=== PATIENT | female | born 1990 | race Caucasian/White ===

== ENCOUNTER 2018-11-25 05:49 | Inpatient (IN) | payer OTHER ==
[~2018-11-25] VITALS: Ht 160 cm; Wt 51.6 kg
--- NOTE | 2018-11-25 06:00 | NUR ---
PT ADMITTED TO FLOOR. HAS C/O RT SHOULDER PAIN, AND OTHER GENERALIZED PAIN. STATED SHE HAS RECENTLY HAD N/V/D AND SOME ABD PAIN, ALTHOUGH NONE CURRENTLY, AND USUALLY TAKES ZOFRAN FOR IT. LIGHT COLORED RASH NOTED TO BODY, PT STATED THAT THE MEDICATION SHE WAS GIVEN AT [facility] HAD HELPED RASH ALOT.
[2018-11-25 06:07] VITALS: BP 95/68; PULSE 82; TEMP 97.5
[2018-11-25] MEDS ORDERED: ZOFRAN8 MG PO (06:32)
[2018-11-25] MEDS ORDERED: APRESOLINE 25MG25 MG PO (06:33)
[2018-11-25] MEDS ORDERED: LEXAPRO 10MG10 MG PO (06:34)
[2018-11-25] MEDS ORDERED: VISTARIL 2525 MG/CAP PO (06:37)
[2018-11-25 07:08] VITALS: BP 110/71; PULSE 80; TEMP 98
[2018-11-25 07:15] LABS: HEMATOCRIT 39.9 % (37.0-47.0); HEMOGLOBIN 12.8 g/dl (12.5-16.0); MEAN CELL VOLUME 88 fl (80.0-100.0); MEAN CORPUSCULAR HEMOGLOBIN 28 pg (27.0-31.0); MEAN CORPUSCULAR HGB CONC 32 g/dl (33.0-37.0); MEAN PLATELET VOLUME 10.5 fl (7.4-10.4); PLATELET COUNT 252 K/mm3 (130-400); RED BLOOD COUNT 4.54 M/mm3 (4.10-5.30); REDCELL DISTRIBUTION WIDTH-CV 12.7 % (11.5-14.5)
[2018-11-25 07:26] LABS: INR 1.1 (0.8-3.0); PROTHROMBIN TIME 12.4 SECONDS (9.7-12.8)
[2018-11-25 07:27] LABS: ALBUMIN 3.7 gm/dL (3.5-5.0); BILIRUBIN,TOTAL 0.6 mg/dL (0.0-1.0); CALCIUM 8.6 mg/dL (8.4-10.2); CREATININE, serum 0.57 (0.52-1.25); POTASSIUM 4.3 mmol/L (3.4-5.0); TOTAL PROTEIN 6.4 gm/dL (6.4-8.2)
[2018-11-25 07:29] LABS: PARTIAL THROMBOPLASTIN TIME 32.3 SECONDS (26.0-37.0)
[2018-11-25 07:40] LABS: BAND 3 % (0-10); BASOPHIL 1 % (0-2); LYMPHOCYTE 19 % (20.0-51.0); NEUTROPHILS 74 % (42.0-75.2); PLATELET ESTIMATE NORMAL (NORMAL)
--- NOTE | 2018-11-25 07:43 | NUR ---
Pt assessment complete. Pt is laying in bed upon entry, she is A/O x3. Her breathing is even and unlabored on RA. Pt currently denies SOB. No N/V at this time. Pt reports bilateral shoulder pain 10/10, PRN pain medication administered. IVF started to L[facility]. POC discussed with patient who verbalizes understanding. She denies needs at this time. Call light within reach.
[2018-11-25 09:33] LABS: MUCOUS Present /lpf; PH 6 (5-8); SQUAMOUS EPITHELIAL 0-2 /hpf; URINE APPEARANCE Clear; URINE BACTERIA Rare /hpf; URINE BILIRUBIN Negative (NEGATIVE); URINE BLOOD Negative (NEGATIVE); URINE COLOR Yellow; URINE GLUCOSE Negative (NEGATIVE); URINE KETONE 2+ (NEGATIVE); URINE LEUKOCYTE ESTERASE Negative (NEGATIVE); URINE NITRATE Negative (NEGATIVE); URINE PROTEIN(semi-quant) Negative (NEGATIVE); URINE RBC 0-2 /hpf; URINE UROBILINOGEN Negative (NEGATIVE)
[2018-11-25 09:39] LABS: COLLECTION METHOD CLEAN CATCH
--- NOTE | 2018-11-25 11:33 | NUR ---
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 No needs right now.
[2018-11-25 11:48] VITALS: BP 122/86; PULSE 89; TEMP 98.2
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
[2018-11-25 16:33] VITALS: BP 120/81; PULSE 83; TEMP 98.4
--- NOTE | 2018-11-25 18:36 | NUR ---
Pt had uneventful day. No SOB or increase in rash. POC discussed with patient who verbalizes understanding. IVF infusing without complications. No needs at this time. Call light within reach.
[2018-11-25 20:29] VITALS: BP 136/78; PULSE 91; TEMP 98.6
[2018-11-26] VITALS (7 sets, daily range): BP systolic 107–128; BP diastolic 54–87; PULSE 62–83; TEMP 97.7–98.8
--- NOTE | 2018-11-26 05:51 | NUR ---
PT HAD ENEVENTFUL NOC. PT WAS UP AMBULATING IN [place] THIS NOC, PT HAD SOME C/O ACHYNESS BUT DIDNT NEED ANY PAIN MEDICAION. FATHER STAYED AT BEDSIDE THROUGHOUT SHIFT. NO ISSUES OR CONSERNS VOICED OVERNIGHT. IV FLUIDS INFUSING WITHOUT ISSUE. PT PLEASENT AND COOPERATIVE WITH CARES. PT DENIED NEED FOR BENDRYL THIS SHIFT, AND HAD NO C/O ITCHINESS.
[2018-11-26 06:43] LABS: ALBUMIN 3.3 gm/dL (3.5-5.0); CALCIUM 8.8 mg/dL (8.4-10.2); CREATININE, serum 0.48 (0.52-1.25); POTASSIUM 3.9 mmol/L (3.4-5.0); TOTAL PROTEIN 5.7 gm/dL (6.4-8.2)
--- NOTE | 2018-11-26 07:59 | NUR ---
Bren RN from ICU phoned about tele high alarm. This nurse checked in on patient. Patient was up and moving, went to bathroom. Patient back in bed. Patient stated she "tugged at IV, looked like part of it came out and I put it back in". Assessed site, fluids still running, denies pain or burning. NO infiltration. Will continue to monitor.
[2018-11-26 08:58] LABS: INR 1.1 (0.8-3.0); PROTHROMBIN TIME 12.7 SECONDS (9.7-12.8)
[2018-11-26 09:01] LABS: PARTIAL THROMBOPLASTIN TIME 27.8 SECONDS (26.0-37.0)
--- NOTE | 2018-11-26 10:06 | NUR ---
Patient laying in bed with dad at bedside. Will go down for ultrasound around 1030. RADAMES Correia (ICU) called about tele again, flatline. This nurse was in room at time. Patient is A&O. Will change stickers altogether. Lung sounds clear, heart RRR. Pulses strong bilaterally. Denies chest pain, N/V, dizziness. States some dizziness when getting up. Patient on room air. VSS. No rash noted over bilateral legs. Back is red/splotchy, per patient dad "it looks much better". Abdomen is mildy spotty. Per patient, "it is itchy, i try not to touch it at all". No edema noted. No pain in abdomen. Denies other needs at this time.
--- NOTE | 2018-11-26 16:30 | NUR ---
New IV started, 20G RFA, patent, fluids started at 125 ml/hr. requesting something for headache. PRN Motrin administered. Denies other needs at this time. dad at bedside. Call light within reach.
[2018-11-26 18:51] LABS: ALBUMIN 3.6 gm/dL (3.5-5.0); BILIRUBIN UNCONJUGATED 0.4 mg/dL (0.0-1.1); BILIRUBIN,DIRECT 0.5 mg/dL (0.0-0.4); BILIRUBIN,TOTAL 0.9 mg/dL (0.0-1.0); TOTAL PROTEIN 6.2 gm/dL (6.4-8.2)
--- NOTE | 2018-11-26 20:21 | NUR ---
Resting in bed. Assessment complete. Lungs clear. Heart sounds normal. Bowels active x4. Pulse strong throughout. No edema noted. Rash present on back, ABD, and upper legs bilaterally. Denies pain. Reports chest tightness and anxiety. VS stable at this time. Will continue to monitor. IV fluids infusing at 125 ml/hr into right forearm without complications. Denies needs at this time.
--- NOTE | 2018-11-26 23:30 | NUR ---
Resting in bed. Reports back ache. Provided with PRN motrin. Will monitor.
[2018-11-27 00:25] LABS: TRICYCLIC ANTIDEPRESS URINE NEGATIVE
--- NOTE | 2018-11-27 04:00 | NUR ---
Resting in bed asleep. Call light in reach.
[2018-11-27 04:43] VITALS: BP 123/76; PULSE 80; TEMP 97.9
--- NOTE | 2018-11-27 05:53 | NUR ---
Patient had uneventful night. Resting in bed this AM with father at bedside. Call light in reach.
[2018-11-27 06:52] LABS: HEMOGLOBIN 11.1 g/dl (12.5-16.0); MEAN CELL VOLUME 91 fl (80.0-100.0); MEAN CORPUSCULAR HEMOGLOBIN 29 pg (27.0-31.0); MEAN CORPUSCULAR HGB CONC 32 g/dl (33.0-37.0); MEAN PLATELET VOLUME 11.3 fl (7.4-10.4); PLATELET COUNT 262 K/mm3 (130-400); RED BLOOD COUNT 3.83 M/mm3 (4.10-5.30); REDCELL DISTRIBUTION WIDTH-CV 12.9 % (11.5-14.5)
--- NOTE | 2018-11-27 06:52 | NUR ---
Report given to RADAMES Young
[2018-11-27 06:53] LABS: ALBUMIN 2.9 gm/dL (3.5-5.0); BILIRUBIN,TOTAL 0.7 mg/dL (0.0-1.0); CALCIUM 8.1 mg/dL (8.4-10.2); CREATININE, serum 0.47 (0.52-1.25); HEMATOCRIT 34.7 % (37.0-47.0); POTASSIUM 3.4 mmol/L (3.4-5.0); TOTAL PROTEIN 5.3 gm/dL (6.4-8.2)
[2018-11-27 07:25] VITALS: BP 121/78; PULSE 74; TEMP 97.9
[2018-11-27 07:27] LABS: LYMPHOCYTE 41 % (20.0-51.0); NEUTROPHILS 50 % (42.0-75.2); PLATELET ESTIMATE NORMAL (NORMAL)
--- NOTE | 2018-11-27 09:06 | NUR ---
Pt resting in bed with dad at bedside. Pt IV intact and patent no redness or infiltration noted. Pt rash decreasing on legs and abdomen and back. Pt denies pain. Pt has call light in reach and denies needs at this time.
[2018-11-27] MEDS ORDERED: PREDNISONE20 MG PO (10:32)
--- NOTE | 2018-11-27 11:37 | NUR ---
Pt given discharge instructions and follow up appt and lab order. Pt IV discontinued in RF and tip intact and no redness or infiltration or bleeding. Pt telemetry discontinued. Pt's dad here to take her home. Pt has all belonings and escorted out via wheelchair without incident.
== END 2018-11-27 11:30 | disposition home or self-care (01) | DRG 607 ==
LOC: MEDICAL 05:49
PROVIDERS: Nurse Practitioner Family; Physician Assistant; ADMIT Family Medicine
DX: L27.0 Generalized skin eruption due to drugs and medicaments taken internally (principal); N39.0 Urinary tract infection, site not specified; T36.8X5A Adverse effect of other systemic antibiotics, initial encounter; Y92.9 Unspecified place or not applicable; R74.0 Nonspecific elevation of levels of transaminase and lactic acid dehydrogenase [LDH]; K71.0 Toxic liver disease with cholestasis; F41.9 Anxiety disorder, unspecified; M25.512 Pain in left shoulder; M25.511 Pain in right shoulder
CPT/HCPCS: 99232-AI; 99238; G0378; J1170; J2930; J7030; J7512